=== PATIENT | female | born 1995 | race Caucasian/White ===

== ENCOUNTER 2020-09-28 17:50 | Outpatient (CLI) | payer BC, OTHER ==
[~2020-09-28] VITALS: Ht 175.3 cm; Wt 115.0 kg
[2020-09-28 18:03] VITALS: BP 132/84
== END 2020-09-28 19:12 | disposition home or self-care (01) ==
LOC: LDOP 17:50
PROVIDERS: ATTEND Obstetrics & Gynecology
DX: O26.893 Other specified pregnancy related conditions, third trimester (principal); R10.9 Unspecified abdominal pain; Z3A.38 38 weeks gestation of pregnancy
CPT/HCPCS: 59025

== ENCOUNTER → 2020-10-01 | Outpatient (CLI) | payer BC, OTHER ==
[~2020-10-01] MED LIST: IBUP-1223 PO; PREN1TAB60 PO
== END | disposition home or self-care (01) ==
LOC: STAR 11:15
PROVIDERS: ATTEND Obstetrics & Gynecology
DX: Z20.828 Contact with and (suspected) exposure to other viral communicable diseases (principal)
CPT/HCPCS: 87635

== ENCOUNTER 2020-10-02 10:05 | Inpatient (IN) | payer BC, OTHER ==
[~2020-10-02] VITALS: Ht 175.3 cm; Wt 117.3 kg
[2020-10-02] MEDS ORDERED: METOCLOPRAMIDE 5 MG/ML, 2ML IVPush PRN (10:30)
[2020-10-02] MEDS ORDERED: FENTANYL PF 100 MCG/2ML IVPush PRN (10:30)
[2020-10-02] MEDS ORDERED: TERBUTALINE 1 MG/ML, 1ML IVPush PRN (10:30)
[2020-10-02] MEDS ORDERED: ONDANSETRON 2MG/ML, 2ML IVPush PRN (10:30)
[2020-10-02] MEDS ORDERED: SODIUM CITRATE/CITRIC ACID 30 ML UDC PO PRN (10:30)
[2020-10-02] MEDS ORDERED: CALCIUM CARBONATE 500 MG TAB.CHEW PO PRN (10:30)
[2020-10-02] MEDS ORDERED: FENTANYL PF 100 MCG/2ML IV PRN (10:30)
[2020-10-02] MEDS ORDERED: OXYTOCIN 30U/ 0.9% NaCL 500ML 500 ML IV PRN (10:30)
[2020-10-02] MEDS ORDERED: TERBUTALINE 1 MG/ML, 1ML SQ PRN (10:30)
[2020-10-02] MEDS ORDERED: OXYTOCIN 30U/ 0.9% NaCL 500ML 500 ML IV ONE (10:30)
[2020-10-02] MEDS ORDERED: LIDOCAINE 1%, 20ML ONE (10:36)
[2020-10-02] MEDS ORDERED: MISOPROSTOL 100 MCG TABLET ONE ×2 (10:36→10:40)
[2020-10-02] MEDS ORDERED: OXYTOCIN 30U/ 0.9% NaCL 500ML 500 ML ONE ×2 (10:36→23:49)
[2020-10-02] MEDS ORDERED: NEWBORN KIT ONE (10:39)
[2020-10-02] MEDS: PLEASE ENTER HEIGHT AND WEIGHT MC SCH ×2 (11:00→19:00)
[2020-10-02] MEDS ORDERED: AMPICILLIN 2 GM in SODIUM CHLORIDE 0.9% 100 ML IVPB ONE (11:00)
[2020-10-02] MEDS: LACTATED RINGERS 1,000 ML IV SCH ×4 (11:05→20:30)
[2020-10-02 11:11] LABS: BASOPHILS % (AUTO) 0 % (0-1); EOSINOPHILS % (AUTO) 0 % (1-7); LYMPHOCYTES % (AUTO) 12 % (22-44); MEAN CORPUSCULAR HEMOGLOBIN 29.3 pg (27.0-34.8); MEAN CORPUSCULAR HGB CONC 33.1 g/dL (32.4-35.8); MEAN PLATELET VOLUME 10.1 fL (7.4-10.4); MONOCYTES % (AUTO) 8 % (2-9); NEUTROPHILS % (AUTO) 79 % (42-75); PLATELET COUNT 265 x10^3/uL (130-400)
[2020-10-02] MEDS ORDERED: PREN1TAB60 PO (11:12)
[2020-10-02 11:36] LABS: MD SCAN
[2020-10-02] MEDS ORDERED: BUPIVACAINE 0.25% ONE (12:01)
[2020-10-02] MEDS ORDERED: FENTANYL/BUPIV./NS/PF 250 ML EPIDCONT ONE (12:01)
[2020-10-02] MEDS ORDERED: LACTATED RINGERS 1,000 ML IVBOLUS PRN (12:30)
[2020-10-02] MEDS ORDERED: EPHEDRINE 50 MG/ML, 1ML IVPush PRN (12:30)
[2020-10-02] MEDS ORDERED: FENTANYL/BUPIV./NS/PF 250 ML EPIDCONT SCH (12:30)
[2020-10-02] MEDS ORDERED: ONDANSETRON 2MG/ML, 2ML ONE (13:37)
[2020-10-02] MEDS: D5%-LACTATED RINGERS 1,000 ML IV SCH ×2 (13:50→18:30)
[2020-10-02] MEDS: AMPICILLIN 1 GM in SODIUM CHLORIDE 0.9% 100 ML IVPB SCH ×3 (15:06→23:00)
[2020-10-02] MEDS ORDERED: IBUPROFEN 600 MG TABLET ONE (23:49)
[2020-10-03] MEDS ORDERED: ONDANSETRON 2MG/ML, 2ML IV PRN
[2020-10-03] MEDS ORDERED: IBUPROFEN 800 MG TABLET PO PRN
[2020-10-03] MEDS ORDERED: MISOPROSTOL 200 MCG TABLET PO PRN
[2020-10-03] MEDS ORDERED: CARBOPROST TROMETHAMINE 250 MCG/ML, 1ML IM PRN
[2020-10-03] MEDS ORDERED: BISACODYL 10 MG SUPP PR PRN
[2020-10-03] MEDS ORDERED: SIMETHICONE 80 MG CHEW TAB PO PRN
[2020-10-03] MEDS ORDERED: ACETAMINOPHEN 325 MG TABLET PO PRN
[2020-10-03] MEDS ORDERED: OXYcodone IR 5MG TABLET PO PRN
[2020-10-03] MEDS ORDERED: METHYLERGONOVINE 0.2 MG/ML IM PRN
[2020-10-03] MEDS ORDERED: OXYcodone/APAP 5/325MG TABLET PO PRN
[2020-10-03] MEDS ORDERED: METOCLOPRAMIDE 5 MG/ML, 2ML IV PRN
[2020-10-03] MEDS ORDERED: GLYCERIN ADULT SUPP PR PRN
[2020-10-03 02:00] VITALS: BP 105/68
[2020-10-03] MEDS: LACTATED RINGERS 1,000 ML IV SCH ×2 (02:30→04:30)
[2020-10-03] MEDS: D5%-LACTATED RINGERS 1,000 ML IV SCH (02:30)
[2020-10-03] MEDS: AMPICILLIN 1 GM in SODIUM CHLORIDE 0.9% 100 ML IVPB SCH ×2 (03:00→07:00)
[2020-10-03] MEDS: PLEASE ENTER HEIGHT AND WEIGHT MC SCH (03:00)
[2020-10-03 07:00] VITALS: BP 104/68
[2020-10-03 07:37] LABS: BASOPHILS % (AUTO) 0 % (0-1); EOSINOPHILS % (AUTO) 0 % (1-7); LYMPHOCYTES % (AUTO) 8 % (22-44); MEAN CORPUSCULAR HEMOGLOBIN 30.6 pg (27.0-34.8); MEAN PLATELET VOLUME 10.1 fL (7.4-10.4); MONOCYTES % (AUTO) 11 % (2-9); NEUTROPHILS % (AUTO) 81 % (42-75); PLATELET COUNT 207 x10^3/uL (130-400); RED BLOOD COUNT 3.34 x10^6/uL (3.82-5.3); RED CELL DISTRIBUTION WIDTH 13.9 % (9.6-15.2)
[2020-10-03] MEDS: PRENATAL VIT/IRON/FA 1 EACH TABLET PO SCH (08:00)
[2020-10-03] MEDS: DOCUSATE 100 MG CAPSULE PO PRN (08:00)
[2020-10-03 08:45] LABS: MD SCAN
[2020-10-03] MEDS: OXYTOCIN 30U/ 0.9% NaCL 500ML 500 ML IV SCH ×2 (10:00)
[2020-10-03 12:00] VITALS: BP 116/71
[2020-10-03 17:00] VITALS: BP 104/72
[2020-10-03] MEDS: IBUPROFEN 600 MG TABLET PO PRN (20:08)
[2020-10-03 20:30] VITALS: BP 117/80
[2020-10-04] MEDS: IBUPROFEN 600 MG TABLET PO PRN (05:39)
[2020-10-04] MEDS: PRENATAL VIT/IRON/FA 1 EACH TABLET PO SCH (09:20)
[2020-10-04] MEDS: DOCUSATE 100 MG CAPSULE PO PRN (09:20)
[2020-10-04] MEDS ORDERED: IBUP-1223 PO (11:36)
== END 2020-10-04 13:35 | disposition home or self-care (01) | DRG 807 ==
LOC: LDOP 10:05 → LDIP 10:43 → 2NW 10-03 01:31
PROVIDERS: ADMIT Obstetrics & Gynecology; ATTEND Obstetrics & Gynecology
PROC: 10E0XZZ Delivery of Products of Conception, External Approach (ICD-10-PCS; principal; 2020-10-02)
PROC: 0UQMXZZ Repair Vulva, External Approach (ICD-10-PCS; 2020-10-02)
PROC: 10907ZC Drainage of Amniotic Fluid, Therapeutic from Products of Conception, Via Natural or Artificial Opening (ICD-10-PCS; 2020-10-02)
PROC: 3E0R3BZ Introduction of Anesthetic Agent into Spinal Canal, Percutaneous Approach (ICD-10-PCS; 2020-10-02)
PROC: 00HU33Z Insertion of Infusion Device into Spinal Canal, Percutaneous Approach (ICD-10-PCS; 2020-10-02)
DX: O77.0 Labor and delivery complicated by meconium in amniotic fluid (principal); Z37.0 Single live birth; O99.52 Diseases of the respiratory system complicating childbirth; O70.0 First degree perineal laceration during delivery; Z3A.39 39 weeks gestation of pregnancy; J45.909 Unspecified asthma, uncomplicated; F41.9 Anxiety disorder, unspecified; O71.82 Other specified trauma to perineum and vulva; O99.344 Other mental disorders complicating childbirth
CPT/HCPCS: 36415; J7121; 85025; 86592; 86850; 86900; G0378; J0290; J2405; J2590; J7120